=== PATIENT | male | born 1965 | race Caucasian/White ===

== ENCOUNTER 2021-02-13 05:11 | Day surgery (SDC) | payer OTHER, SELFPAY ==
[2021-02-04 13:09] VITALS: BMI 32.3
--- NOTE | 2021-02-13 08:40 | WPDANESEPPF ---
Anes - Initial Pre Proc Eval Procedure: Operation Date: 02/13/21 10:45 Proposed Procedures p Screening Colonoscopy - Chucky Vicente MD Date/Time: 02/13/21 08:40 Surgeon: Chucky Vicente MD Pre Op Diagnosis: neoplasm screening Patient Data Age: 55 Gender: M Height: 1.68 m Weight: 91 kg Allergies Allergy/AdvReac Type Severity Reaction Status Date / Time No Known Allergies Allergy Verified 02/13/21 09:34 Home Medications Medication Instructions Recorded Confirmed Type aspirin 81 mg PO DAILY 02/04/21 02/04/21 History ebsfdtqv-kse-acgqk-vit K-lycop 1 tablet PO DAILY 02/04/21 02/04/21 History [Men's Multivitamin] omega-3 fatty acids-vitamin E 1 cap PO DAILY 02/04/21 02/04/21 History [Fish Oil] Patient hx anesthesia problems: none Family hx anesthesia problems: none PMFSH Past Medical History Medical History (Updated 02/13/21 @ 08:40 by Abdiel Trevino MD) Obesity Family History Family History (Updated 06/17/17 @ 00:00 by MARGRETUSEArcadio Laboy) Father Acute myocardial infarction Social History Social History Smoking status: Never smoker Alcohol intake: current Alcohol use details: very rarely Living arrangements: with family Spiritual care concerns: No Anes - Eval Final PreProcedure Day of Procedure 02/13/21 08:40 Patient weight: obese Heart: regular rate and rhythm Lungs: clear to auscultation and normal air movement Airway: Mallampati scale class II Neurological: alert and oriented Last oral intake: >/= 8 hours ASA classification: II Emergent: no Anesthetic plan: proceed Anesthesia type and monitoring: general GIVS Informed Consent: The patient's anesthetic plan and its attendant risks and benefits were discussed with the patient/family/POA. Questions were solicited and answers provided to the satisfaction of the patient/family/POA.
[2021-02-13 09:35] VITALS: BP 134/85; PULSE 76; RESP 18; TEMP 36.4; O2SAT 98
[2021-02-13] MEDS: LACTATED RINGERS 1,000 ML 150 ML IV CONT (09:47)
--- NOTE | 2021-02-13 10:27 | PM.HPGS ---
History of Present Illness History of Present Illness Consent: Risks, benefits, and alternatives have been discussed and questions answered. Patient agrees to proceed with procedure. Chief complaint: neoplasm screening Narrative: Simon Faye is a 55 year old male here for first screening colonoscopy Review of Systems Constitutional: Constitutional: Denies headache(s) and Denies weakness Eyes: Eyes: Denies blurry vision ENT: Reports Normal hearing present, Denies headache(s) and Denies neck pain Cardiovascular: Cardiovascular: Denies chest pain and Denies dyspnea Respiratory: Respiratory: Denies dyspnea Gastrointestinal: Gastrointestinal: Reports no additional gastrointestinal complaints Genitourinary: Genitourinary: Denies dysuria Musculoskeletal: Musculoskeletal: Denies neck pain Integumentary/Breasts: Skin/Breast: Denies dry skin Neurologic: Reports Normal hearing present, Denies headache(s) and Denies weakness Psychiatric: Psychiatric: Denies anxiety Endocrine: Endocrine: Denies change in body appearance Hematologic/Lymphatic: Hematologic/Lymphatic: Denies easy bleeding Allergic/Immunologic: Allergic/Immunologic: Denies urticaria [facility] Past Medical History Medical History (Updated 02/13/21 @ 10:27 by Chucky Vicente MD) Colon cancer screening Obesity Family History Family History (Updated 06/17/17 @ 00:00 by CONVUSER A) Father Acute myocardial infarction Social History Social History Smoking status: Never smoker Alcohol intake: current Alcohol use details: very rarely Living arrangements: with family Spiritual care concerns: No Meds Home Medications and Allergies Home Medications Medication Instructions Recorded Confirmed Type aspirin 81 mg PO DAILY 02/04/21 02/04/21 History tagodhci-eqe-mwpkb-vit K-lycop 1 tablet PO DAILY 02/04/21 02/04/21 History [Men's Multivitamin] omega-3 fatty acids-vitamin E 1 cap PO DAILY 02/04/21 02/04/21 History [Fish Oil] Allergies Allergy/AdvReac Type Severity Reaction Status Date / Time No Known Allergies Allergy Verified 02/13/21 09:34 Vital Signs Vital Signs - 24 hr 02/13/21 09:35 Temperature 97.6 F Pulse Rate 76 Respiratory Rate 18 Blood Pressure 134/85 Pulse Oximetry 98 Exam Const: General: comfortable and no acute distress HENMT: General nose exam: Normal nares present Eyes: General: appearance normal, both eyes and all related structures Neck: Neck: no JVD Resp: Auscultation: clear to auscultation bilaterally Cardio: Rate: regular rate Rhythm: regular rhythm GI: Inspection: non-distended GI Palp: Yes Soft to palpation Skin: General skin exam: normal color Neuro: General: gait normal Speech: normal speech Extrem: General: normal to inspection Psych: Mental Status: mental status grossly normal Assessment and Plan Assessment and plan (1) Colon cancer screening: Code(s): Z12.11 - Encounter for screening for malignant neoplasm of colon Status: Acute Assessment and Plan: colonoscopy
[2021-02-13 10:46] VITALS: BP 137/74; PULSE 66; RESP 20; O2SAT 99
[2021-02-13 10:56] VITALS: BP 128/77; PULSE 63; RESP 20; O2SAT 97
[2021-02-13 11:06] VITALS: BP 125/78; PULSE 62; RESP 19; O2SAT 98
== END 2021-02-13 11:20 | disposition home or self-care (01) ==
PROVIDERS: Visit Provider Internal Medicine Gastroenterology
PROC: 0DJD8ZZ Inspection of Lower Intestinal Tract, Via Natural or Artificial Opening Endoscopic (ICD-10-PCS; CPT 45378; principal; 2021-02-13 10:45)
DX: Z12.11 Encounter for screening for malignant neoplasm of colon (principal); D12.2 Benign neoplasm of ascending colon; D12.4 Benign neoplasm of descending colon; K57.30 Diverticulosis of large intestine without perforation or abscess without bleeding; K64.8 Other hemorrhoids; E66.9 Obesity, unspecified; Z68.33 Body mass index [BMI] 33.0-33.9, adult; Z79.82 Long term (current) use of aspirin
CPT/HCPCS: 45385; 88305; J2704; J7120